=== PATIENT | male | born 1955 | race Two or more races ===

== ENCOUNTER 2018-01-01 16:38 | Emergency (ER) | payer SELFPAY ==
[~2018-01-01] VITALS: Ht 182.9 cm; Wt 79.4 kg
[2018-01-01 16:45] VITALS: BP 148/85
[2018-01-01] MEDS ORDERED: HYDROCODONE/APAP 10/325MG 1 EA TABLET PO ONE (17:30)
[2018-01-01] MEDS ORDERED: HYDROCODONE/APAP 10/325MG 1 EA TABLET ONE (17:55)
== END 2018-01-01 18:37 | disposition home or self-care (01) ==
LOC: ER 16:41
DX: R07.81 Pleurodynia (principal); F11.23 Opioid dependence with withdrawal; M19.90 Unspecified osteoarthritis, unspecified site
CPT/HCPCS: 71100-TC; A4606; Z7610